=== PATIENT | female | born 1955 | race African-American/Black ===

== ENCOUNTER 2020-07-16 05:26 | Inpatient (IN) ==
[2020-07-16] MEDS ORDERED: HYDROmorphone 2 MG/1 ML VIAL IV STA ×2 (06:09→06:45)
[2020-07-16] MEDS ORDERED: ONDANSETRON 4 MG/2 ML VIAL IV STA (06:09)
[2020-07-16] MEDS ORDERED: SODIUM CHLORIDE 0.9% 1,000 ML IV STA (06:09)
[2020-07-16] MEDS ORDERED: ONDANSETRON 4 MG/2 ML VIAL ONE ×2 (06:10→13:34)
[2020-07-16] MEDS ORDERED: HYDROmorphone 2 MG/1 ML VIAL ONE (06:10)
[2020-07-16 06:17] LABS: Basophils # 0.1 10*3/uL (0.0-0.2); Basophils % 0.7 % (0.0-0.8); Eosinophils # 0.2 10*3/uL (0.0-0.87); Eosinophils % 1.5 % (0.00-10.9); Hematocrit 41.4 VOL% (35.7-47.0); Hemoglobin 14.1 GM/DL (12.0-16.0); Immature Granulocytes % 0.5 %; Immature Granulocytes Absolute 0.08 #; Lymphocytes # 3.1 10*3/uL (1.4-4.0); Lymphocytes % 20.9 % (21.3-54.2); Mean Corpuscular HGB Conc 34.1 GM/DL (32-36); Mean Corpuscular Volume 93.9 FL (87-102); Mean Platelet Volume 11.1 FL (9.6-12.0); Monocytes % 4.6 % (1.7-12.7); Neutrophils % 71.8 % (38.7-73.9); Platelet Count 261 T/CUMM (130-400); Red Blood Count 4.41 MC/CUMM (3.8-5.5); Red Cell Distribution Width 13.8 % (9.3-17.3); White Blood Count 14.9 T/CUMM (4-12)
[2020-07-16 06:45] LABS: Bacteria,Urine Occasional /HPF (Few); Bilirubin,Urine Negative (Negative); Blood, Urine Negative (Negative); Glucose,Urine (UA) Negative (Negative); Hyaline Casts,Urine 1 /LPF (0-3); Ketones,Urine 5 mg/dL (Negative); Nitrite,Urine Negative (Negative); Protein,Urine Negative; RBC,Urine 7 /HPF (0-4); Squamous Epithelial Cell,Urine Occasional /HPF (0-10); Urine Appearance CLEAR (Clear); Urine Color Yellow (Yellow); Urine Specific Gravity 1.017 (1.001-1.035); Urine Urobilinogen < 2.0 EU/DL (0.2-1.0); WBC,Urine 1 /HPF (0-6)
[2020-07-16] MEDS ORDERED: GLUCAGON 1 MG VIAL IM PRN (08:07)
[2020-07-16] MEDS ORDERED: ACETAMINOPHEN 325 MG TABLET PO PRN (08:07)
[2020-07-16] MEDS ORDERED: DEXTROSE 50% 25 GM/50 ML VIAL IV PRN (08:07)
[2020-07-16 08:20] LABS: Calcium 9.5 MG/DL (8.5-10.1); Osmolality,Calculated 280.5 MOS/KG (273-304)
[2020-07-16] MEDS ORDERED: SODIUM CHLORIDE 0.9% 1,000 ML IV SCH (08:30)
[2020-07-16 09:34] LABS: Risk Ratio 2.98; Thyroid Stimulating Hormone 2.03 uIU/ml (0.358-3.74)
[2020-07-16] MEDS ORDERED: TAMSULOSIN 0.4 MG CAPSULE PO SCH ×2 (10:00→21:00)
[2020-07-16] MEDS: PANTOPRAZOLE 40 MG TABLET PO SCH (10:38)
[2020-07-16] MEDS: SODIUM CHLOR 0.9% KCL 40 MEQ 40 MEQ/1,000 ML BAG IV SCH (10:39)
[2020-07-16] MEDS ORDERED: cefTRIAXone 1,000 MG in SYRINGE 1 EACH IV ONE (10:47)
[2020-07-16] MEDS ORDERED: POTASSIUM CHLORIDE 20 MEQ TABLET PO ONE (11:00)
[2020-07-16] MEDS: HYDROmorphone 2 MG/1 ML VIAL IV PRN ×2 (11:31→15:10)
[2020-07-16] MEDS ORDERED: SEVOFLURANE 1 UNIT/15 MINUTE INH ONE (13:33)
[2020-07-16] MEDS ORDERED: MIDAZOLAM 2 MG/2 ML VIAL ONE (13:33)
[2020-07-16] MEDS ORDERED: propofoL 200 MG/20 ML VIAL IV ONE (13:33)
[2020-07-16] MEDS ORDERED: LIDOCAINE 2% 5 ML VIAL ONE (13:33)
[2020-07-16] MEDS ORDERED: SUCCINYLCHOLINE 200 MG/10 ML VIAL ONE (13:34)
[2020-07-16] MEDS ORDERED: PHENYLEPHRINE 1 MG/10 ML SYRINGE IV ONE (13:34)
[2020-07-16] MEDS ORDERED: DEXAMETHASONE 4 MG/1 ML VIAL ONE (13:34)
[2020-07-16] MEDS ORDERED: ACETAMINOPHEN 1,000 MG/100 ML VIAL IV ONE (13:34)
[2020-07-16] MEDS ORDERED: fentaNYL 100 MCG/2 ML VIAL ONE (13:34)
[2020-07-16] MEDS: MESALAMINE 800 MG TABLET PO SCH ×2 (15:10→21:13)
[2020-07-16] MEDS: ENOXAPARIN 40 MG/0.4 ML SYRINGE SUBCUT SCH (15:28)
[2020-07-16] MEDS: ONDANSETRON 4 MG/2 ML VIAL IV PRN (16:31)
[2020-07-16] MEDS ORDERED: SIMVASTATIN 20 MG TABLET PO SCH (21:00)
[2020-07-16] MEDS ORDERED: LINACLOTIDE 145 MCG CAPSULE PO SCH (22:00)
[2020-07-17] MEDS: HYDROmorphone 2 MG/1 ML VIAL IV PRN ×2 (01:53→08:29)
[2020-07-17] MEDS: SODIUM CHLOR 0.9% KCL 40 MEQ 40 MEQ/1,000 ML BAG IV SCH ×3 (01:54→11:00)
[2020-07-17] MEDS: ONDANSETRON 4 MG/2 ML VIAL IV PRN ×2 (02:42→08:29)
[2020-07-17 05:27] LABS: Basophils % 0.2 % (0.0-0.8); Eosinophils % 0.1 % (0.00-10.9); Hematocrit 38.5 VOL% (35.7-47.0); Hemoglobin 12.7 GM/DL (12.0-16.0); Immature Granulocytes % 0.4 %; Immature Granulocytes Absolute 0.06 #; Lymphocytes # 2.2 10*3/uL (1.4-4.0); Lymphocytes % 15.7 % (21.3-54.2); Mean Corpuscular Volume 95.5 FL (87-102); Mean Platelet Volume 11.3 FL (9.6-12.0); Monocytes % 5.5 % (1.7-12.7); Neutrophils % 78.1 % (38.7-73.9); Platelet Count 270 T/CUMM (130-400); Red Blood Count 4.03 MC/CUMM (3.8-5.5); Red Cell Distribution Width 14.1 % (9.3-17.3); White Blood Count 14.1 T/CUMM (4-12)
[2020-07-17 05:43] LABS: Calcium 8.6 MG/DL (8.5-10.1); Osmolality,Calculated 278.4 MOS/KG (273-304)
[2020-07-17] MEDS: MESALAMINE 800 MG TABLET PO SCH (08:31)
[2020-07-17] MEDS: PANTOPRAZOLE 40 MG TABLET PO SCH (08:31)
[2020-07-17] MEDS: ENOXAPARIN 40 MG/0.4 ML SYRINGE SUBCUT SCH (08:33)
[2020-07-17] MEDS ORDERED: CETIRIZINE 10 MG TABLET PO SCH (09:00)
[2020-07-17] MEDS ORDERED: LINACLOTIDE 145 MCG CAPSULE PO SCH (09:00)
[2020-07-17] MEDS ORDERED: MONTELUKAST 10 MG TABLET PO SCH (09:00)
[2020-07-17] MEDS ORDERED: hydroCHLOROthiazide 25 MG TABLET PO SCH (09:00)
[2020-07-17] MEDS ORDERED: POTASSIUM CHLORIDE 20 MEQ TABLET PO SCH (09:00)
[2020-07-17] MEDS ORDERED: PROMETHAZINE 25 MG/1 ML VIAL IM PRN (09:45)
[2020-07-17 11:53] VITALS: BP 125/66
== END 2020-07-17 13:26 | disposition home or self-care (01) | DRG 660 ==
LOC: N.ED 05:26 → N.EDINP 08:07 → N.5E 09:04
PROVIDERS: ADMIT Emergency Medicine; ATTEND Emergency Medicine